=== PATIENT | male | born 1990 | race Two or more races ===

== ENCOUNTER 2024-03-03 22:00 | Emergency (ER) | payer OTHER ==
[~2024-03-03] VITALS: Ht 177.8 cm; Wt 72.6 kg
[2024-03-03] MEDS ORDERED: SULF1TAB48 PO (22:51)
[2024-03-03 22:58] VITALS: BP 131/68; TEMP 98.4; O2SAT 98
== END 2024-03-03 23:02 | disposition home or self-care (01) ==
LOC: ER 22:02
DX: K62.89 Other specified diseases of anus and rectum (principal); Z88.0 Allergy status to penicillin